=== PATIENT | female | born 1965 | race Caucasian/White ===

== ENCOUNTER 2023-06-07 08:22 | Emergency (ER) | payer OTHER, SELFPAY ==
[2023-06-07 08:35] VITALS: BP 143/101; PULSE 74; RESP 16; TEMP 37.2; O2SAT 97
--- NOTE | 2023-06-07 08:42 | ED.GENADULT ---
HPI - General Adult General Chief complaint: Upper Respiratory Infection Stated complaint: left side face/ear congested Source: patient, RN notes reviewed and old records reviewed Mode of arrival: ambulatory Limitations: no limitations History of Present Illness HPI narrative: 58-year-old female presents to [facility] with complaints of left-sided sinus congestion, sinus pain, left earache, and slight cough this started 5 days ago. Patient taking raym-wqa-tredmdy sinus medications with no relief. Patient denies chest pain, dizziness, weakness, nausea vomiting. MD complaint: sinus congestion and pain Onset (ago): day(s) (5) Related Data Home Medications Medication Instructions Recorded Confirmed calcium-vitamin D3 250 mg-50 unit tablet PO 07/22/20 11/29/22 tablet zinc 50 mg tablet 50 mg PO DAILY 07/22/20 11/29/22 coenzyme Q10 10 mg capsule (Co 10 mg PO ONCE 01/26/21 11/29/22 Q-10) jpchogyv-qccecj-xvtbj extract 5 cap PO 01/26/21 11/29/22 mg-6 mg-150 mg capsule (Fruit and Vegetable Daily) ascorbate calcium (vitamin C) 500 500 mg PO DAILY 08/22/21 11/29/22 mg tablet vitamin E 200 unit capsule 200 unit PO DAILY 08/22/21 11/29/22 Allergies Allergy/AdvReac Type Severity Reaction Status Date / Time No Known Allergies Allergy Verified 11/29/22 07:13 Review of Systems Constitutional: Constitutional: Reports no additional constitutional complaints, Denies body ache(s), Denies chills, Denies fever(s) and Denies malaise Eyes: Eyes: Reports no additional eye complaints ENT: Reports as per HPI, Denies dizziness, Reports otalgia ( left), Reports facial pain, Reports nasal congestion, Reports sinus pain, Reports sinus pressure and Denies sore throat Cardiovascular: Cardiovascular: Reports no additional cardiovascular complaints Respiratory: Respiratory: Reports as per HPI, Reports cough, Denies pain on inspiration, Denies pain with cough and Denies dyspnea Neurologic: Reports system reviewed and no additional complaints, except as documented PMFSH Past Medical History Medical History Fibroids 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 Tendinitis, de Quervain's Family History Family History Other Diabetes mellitus Family history of alcoholism Family history of arthritis Family history of malignant neoplasm Hypertension Social History Social History Smoking packs per day: 0.5 Smoking cigarettes per day: 10.0 Years smoked: 7 Smoking pack-years: 3.50 Smoking status: Never smoker Tobacco type: cigarettes Second hand tobacco smoke exposure: Yes Smoking end date: 07/02/89 Alcohol intake: current Alcohol use details: Social Substance use: current Substance use type: does not use Comments At the time of my signature, I reviewed and agree with the nursing past medical, surgical, social, and family history. There is no relevant family history pertinent to the patient complaint. Exam Const: General: cooperative, healthy appearing, no acute distress and well nourished Nutritional Appearance: well nourished Orientation/consciousness: patient oriented x3 Limitations: no limitations HENMT: Head: normal to inspection and normocephalic Ears: external ears normal, TM normal on the right, mastoids normal, Abnormal EAC present and TM abnormal bulging and erythematous Face/Nose/Sinus: Normal external nose present, No nasal polyps present, sinus tenderness ( left maxillary sinus) and Facial tenderness on exam of face and sinuses Face and sinus: normal facial exam Mouth: Yes Normal oral and palatal mucosa present, Yes oropharynx normal and Yes moist mucous membranes Throat: posterior oropharynx normal, tonsils normal, uvula midline and no uvular edema Eyes: General: appearance normal, both eyes and all
[2023-06-07 09:04] VITALS: BP 162/70
== END 2023-06-07 08:57 | disposition home or self-care (01) ==
PROVIDERS: Emergency Provider Registered Nurse; PCP Nurse Practitioner Family
DX: H66.92 Otitis media, unspecified, left ear (principal); J01.00 Acute maxillary sinusitis, unspecified; Z87.891 Personal history of nicotine dependence
CPT/HCPCS: 99213; G0463

== ENCOUNTER 2023-06-27 16:05 | Emergency (ER) | payer OTHER, SELFPAY ==
[2023-06-27 16:27] VITALS: BP 152/88; PULSE 71; RESP 16; TEMP 37.3; O2SAT 100
--- NOTE | 2023-06-27 16:53 | ED.URI ---
HPI - URI/Sore Throat General Chief Complaint: Upper Respiratory Infection Stated Complaint: Sinus Time Seen by Provider: 06/27/23 16:50 Source: patient and RN notes reviewed Mode of arrival: ambulatory Limitations: no limitations History of Present Illness HPI Narrative: 58-year-old female presents concern for nasal drainage, sinus congestion for the past 4 days. She reported she was treated here for an ear infection and she finished antibiotics and felt completely better and then started feeling ill again 4 days ago. Reports she has taken multi symptom cold medicine without relief. She denies fever, chills, aches, sweats. She reports she is concerned she might be allergic to a real [place] tree that she was around on [place] elicited complaint: rhinorrhea and nasal congestion Related Data Home Medications Medication Instructions Recorded Confirmed calcium-vitamin D3 250 mg-50 unit tablet PO 07/22/20 11/29/22 tablet zinc 50 mg tablet 50 mg PO DAILY 07/22/20 11/29/22 coenzyme Q10 10 mg capsule (Co 10 mg PO ONCE 01/26/21 11/29/22 Q-10) ascorbate calcium (vitamin C) 500 500 mg PO DAILY 08/22/21 11/29/22 mg tablet vitamin E 200 unit capsule 200 unit PO DAILY 08/22/21 11/29/22 Allergies Allergy/AdvReac Type Severity Reaction Status Date / Time No Known Allergies Allergy Verified 06/27/23 16:59 Review of Systems Review of Systems: CONSTITUTIONAL: Denies malaise, chills, sweats, or fever. EYES: Denies visual changes, redness, or discharge. ENT: Reports rhinorrhea, congestion, and sore throat. Denies otalgia CARDIOVASCULAR: Denies chest pain, palpitations, or edema. RESPIRATORY: Reports cough. Denies dyspnea. GASTROINTESTINAL: Denies abdominal pain, nausea, vomiting, diarrhea SKIN: Denies rash or itching. MUSCULOSKELETAL: Denies myalgia. NEUROLOGIC: Denies headache. 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 Tendinitis, de Quervain's Family History Family History Other Diabetes mellitus Family history of alcoholism Family history of arthritis Family history of malignant neoplasm Hypertension Social History Social History Smoking packs per day: 0.5 Smoking cigarettes per day: 10.0 Years smoked: 7 Smoking pack-years: 3.50 Smoking status: Never smoker Tobacco type: cigarettes Second hand tobacco smoke exposure: Yes Smoking end date: 07/02/89 Alcohol intake: current Alcohol use details: Social Substance use: current Substance use type: does not use Comments At time of signature, agree with nursing past medical, surgical, social and family history. There is no relevant family history pertinent to the presenting complaint Exam Narrative: GENERAL: Nontoxic-appearing, well-nourished, and in no acute distress. HEAD: Normocephalic EYES: PERRLA, conjunctivae clear ENT: Nares clear, turbinates edematous and erythematous, clear discharge. Mucous membranes moist. TM pearly hand with dull light reflex bilaterally; no tragal tenderness. Oropharynx not erythematous without lesions. Tonsils not enlarged and without exudate, no drooling, no hoarseness, no trismus, uvula midline. NECK: Supple. No lymphadenopathy CHEST: Clear to auscultation, breath sounds equal. No wheezing, rhonchi, rales, or stridor. No respiratory distress, speaks in full sentences. HEART: Regular rate and rhythm. No murmur heard. SKIN: Warm, dry, no rash. NEURO: Alert and oriented x3. PSYCH: Normal mood and affect Course Course Emergency Course: Patient is aware of diagnosis, understands and agrees to treatment plan. Anticipatory guidance given. Patient agrees to follow-up as directed
== END 2023-06-27 17:39 | disposition home or self-care (01) ==
PROVIDERS: Emergency Provider Nurse Practitioner; PCP Nurse Practitioner Family
DX: J06.9 Acute upper respiratory infection, unspecified (principal); Z20.822 Contact with and (suspected) exposure to COVID-19; Z87.891 Personal history of nicotine dependence
CPT/HCPCS: 87426; 87804; 99213; C9803; G0463

== ENCOUNTER 2023-12-10 05:06 | Emergency (ER) | payer OTHER, SELFPAY ==
[2023-12-10 05:09] VITALS: BP 179/99; PULSE 64; RESP 16; TEMP 36.6; O2SAT 99
--- NOTE | 2023-12-10 05:24 | ED.BACK ---
HPI - Back Pain/Injury General Chief Complaint: Extremity Injury, Lower Stated Complaint: R leg pain Time Seen by Provider: 12/10/23 05:13 History of Present Illness HPI Narrative: Patient with history of sciatica states that for last 2 months she has been having pain to her right lower back that radiates all the way down her leg, almost to the foot, and has been getting worse over the last few days to the point where it hurts to walk. Has had similar symptoms in the past with herniated disc in her neck for which she had surgery done 30 years ago, has had sciatica in the past but has never gone all the way down her leg. No swelling to legs Related Data Home Medications Medication Instructions Recorded Confirmed calcium-vitamin D3 250 mg-50 unit tablet PO 07/22/20 11/29/22 tablet zinc 50 mg tablet 50 mg PO DAILY 07/22/20 11/29/22 coenzyme Q10 10 mg capsule (Co 10 mg PO ONCE 01/26/21 11/29/22 Q-10) ascorbate calcium (vitamin C) 500 500 mg PO DAILY 08/22/21 11/29/22 mg tablet vitamin E 200 unit capsule 200 unit PO DAILY 08/22/21 11/29/22 Allergies Allergy/AdvReac Type Severity Reaction Status Date / Time No Known Allergies Allergy Verified 12/10/23 05:15 Review of Systems Review of Systems: 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 Tendinitis, de Quervain's Family History Family History Other Diabetes mellitus Family history of alcoholism Family history of arthritis Family history of malignant neoplasm Hypertension Social History Social History Smoking packs per day: 0.5 Smoking cigarettes per day: 10.0 Years smoked: 7 Smoking pack-years: 3.50 Smoking status: Never smoker Tobacco type: cigarettes Second hand tobacco smoke exposure: Yes Smoking end date: 07/02/89 Alcohol intake: current Alcohol use details: Social Substance use: current Substance use type: does not use Exam Narrative: EXAMINATION OF ORGAN SYSTEMS/BODY AREAS: Constitutional: Vital signs per nursing GENERAL:[No acute distress, non-toxic appearing.] HEAD: Normal with no signs of head trauma. EYES: EOMI, conjunctiva normal ENT: Hearing grossly intact LUNGS: Nonlabored breathing. HEART: [Regular rate and rhythm] ABD: [Soft], [nontender to palpation] EXT: Normal range of motion; no unilateral leg swelling SKIN: [No rashes or lesions.] NEURO: [Alert and oriented x 3. No gross focal sensory or strength deficits.] PSYCH: Normal affect Course Vital Signs Vital signs: Vital Signs Temperature 97.8 F 12/10/23 05:09 Pulse Rate 64 12/10/23 05:09 Respiratory Rate 16 12/10/23 05:09 Blood Pressure 179/99 H 12/10/23 05:09 Pulse Oximetry 99 12/10/23 05:09 Oxygen Delivery Room Air 12/10/23 05:09 Temperature 97.8 F 12/10/23 05:09 Pulse Rate 64 12/10/23 05:09 Respiratory Rate 16 12/10/23 05:09 Blood Pressure 179/99 H 12/10/23 05:09 Pulse Oximetry 99 12/10/23 05:09 Oxygen Delivery Room Air 12/10/23 05:09 MDM - Back Pain/Injury MDM Narrative Medical decision making narrative: ED COURSE AND MEDICAL DECISION MAKINM with acute on chronic back pain. Normal motor and sensory exam. Patient able to ambulate. No evidence of acute cord compression, osteomyelitis/discitis or cauda equina without saddle anesthesia, urinary retention/incontinence, numbness/tingling in lower extremities, fever, history of IV drug use, cancer or immunosuppression. Doubt AAA or aortic dissection without severe pain/discomfort or any neurovascular deficits. Doubt DVT without swelling of her legs. I have suspect sciatica/lumbar radiculopathy [Ketorolac 15mg IM] given for sympt
--- NOTE | 2023-12-10 05:26 | PC.NURSE ---
0527 - 50mg PO prednisone and 15mg IM Toradol administered at this time. pt resting comfortably in bed. registration at bedside.
== END 2023-12-10 05:38 | disposition home or self-care (01) ==
LOC: ANHED 05:26
PROVIDERS: Emergency Provider Emergency Medicine; PCP Nurse Practitioner Family
DX: M54.41 Lumbago with sciatica, right side (principal); Z87.891 Personal history of nicotine dependence; Z79.899 Other long term (current) drug therapy
CPT/HCPCS: 96372; 99283; J1885; J7512

== ENCOUNTER 2023-12-29 08:11 | Outpatient (CLI) | payer OTHER, SELFPAY ==
--- NOTE | ~2023-12-29 | MR_ITS ---
EXAMINATION: MR lumbar spine wo con DATE: 12/29/2023 08:48 INDICATION: Right-sided low back pain. Lumbar radiculopathy. TECHNIQUE: Magnetic resonance imaging (MRI) of the lumbar spine was performed without intravenous con trast. Sequences included sagittal T2-weighted FSE, sagittal T2-weighted FS FSE, sagittal T1-weighted FSE, and axial T2-weighted FSE. COMPARISON: None FINDINGS: There is 5 degrees levocurvature of lumbar spine. Vertebral body heights are normal. There is a hemangioma in L3 vertebral body. There is mildly decreased disc height at L2-L3, L3-L4, and L4-L 5 and severely decreased disc height at L5-S1. The distal spinal cord signal intensity is normal. The conus medullaris is at L1. The following disc levels are specifically discussed: L1-L2: The disc does not extend beyond the endplate margin. There is severe right and moderate left f acet joint osteoarthritis. There is no neural foraminal stenosis. There is no central canal stenosis. L2-L3: Is bulging and has an annular fissure. There is severe bilateral facet joint osteoarthritis. T here is mild bilateral neural foraminal stenosis. There is mild central canal stenosis. L3-L4: The disc is bulging and has an annular fissure. There is mild bilateral facet joint osteoarthr itis. There is mild bilateral neural foraminal stenosis. There is mild central canal stenosis. L4-L5: The disc is bulging and has an annular fissure. There is severe bilateral facet joint osteoart hritis. There is mild bilateral neural foraminal stenosis. There is mild central canal stenosis. L5-S1: The disc is bulging with superimposed right subarticular zone extrusion with mass effect on ri ght S1 nerve in right lateral recess. There is severe bilateral facet joint osteoarthritis. There is mild right and moderate left neural foraminal stenosis. There is mild central canal stenosis. There i s moderate stenosis of right lateral recess. IMPRESSION: 1. Severe lower lumbar spondylosis. Of note, an extrusion at L5-S1 exerts mass effect on right S1 ner ve root. Reviewed, dictated and finalized at location E. IMPRESSION: 1. Severe lower lumbar spondylosis. Of note, an extrusion at L5-S1 exerts mass effect on right S1 nerve root.
== END 2023-12-29 08:12 ==
PROVIDERS: PCP Nurse Practitioner Family; Visit Provider Nurse Practitioner Family
DX: M43.06 Spondylolysis, lumbar region (principal)
CPT/HCPCS: 72148

== ENCOUNTER 2025-04-30 08:05 | Outpatient (CLI) | payer OTHER, SELFPAY ==
--- NOTE | 2025-04-30 08:13 | ECG_ITS ---
Test Date: 2025-04-30 08:25:46 Measurements Intervals [place] Rate: 60 P: 34 AK: 168 QRS: -16 QRSD: 110 T: 30 QT: 395 QTc: 396 Interpretive Statements SINUS RHYTHM POSSIBLE LEFT ATRIAL ENLARGEMENT INCOMPLETE RIGHT BUNDLE BRANCH BLOCK BORDERLINE R WAVE PROGRESSION, ANTERIOR LEADS BORDERLINE ST ABNORMALITY- HIGH LATERAL LEADS BORDERLINE ECG No previous ECG available for comparison Electronically Signed On 04-30-2025 08:28:06 CDT by Jony Villanueva D.O.
--- OUTSIDE RECORDS SUMMARY | 2025-04-30 08:13 | XMS_ITS | Clinical Summary ---
Author Organization [facility] [address] Address [address] [place] [address] Care Team Providers Care Staff Radiologist Name Role Phone David Steward MD Unavailable [phone] Veda Rodriguez NP Primary Care Provider [phone] Margarito Pinedo MD Unavailable [phone] Allergies No known active allergies Medications levothyroxine (SYNTHROID, LEVOTHROID) 75 mcg tablet Take 1 tablet (75 mcg total) by mouth daily 1 9 Active fluticasone (FLONASE) 50 mcg/actuation nasal sprayIndication s:Dysfunction of left eustachian tube Administer 2 sprays into each nostril daily 18.2 mL 11 9 Active rosuvastatin (CRESTOR) 10 mg tablet 4 Active methocarbamoL (ROBAXIN) 750 mg tablet 4 Active ibuprofen (ADVIL,MOTRIN) 600 mg tablet 4 Active Active Problems Problem Noted Date Diagnosed Date Dysfunction of both eustachian tubes 11/18/2018 Assessment & Plan (11/18/2018 5:22 PM CDT): Continue Nasal saline followed by Flonase 2 sprays into each nostril while looking down over the sink, do not sniff in or blow nose after use. Then Zantac 300 mg at bedtime follow up in 8 weeks Laryngopharyngeal reflux (LPR) 11/18/2018 Assessment & Plan (11/18/2018 5:23 PM CDT): Continue Nasal saline followed by Flonase 2 sprays into each nostril while looking down over the sink, do not sniff in or blow nose after use. Then Zantac 300 mg at bedtime follow up in 8 weeks LPR discussed and Handout provided Dysfunction of left eustachian tube 10/09/2018 Assessment & Plan (10/09/2018 6:11 PM CDT): Avoid ear cleaning techniques Start Flonase or Nasacort 2 sprays into each nostril while looking down over the sink, do not sniff in or blow nose after use. Consider Zantac if no improvement at follow up Ask about teeth grinding Referred otalgia of left ear 10/09/2018 Assessment & Plan (11/18/2018 5:23 PM CDT): Consider imaging if no improvement in 8 weeks Assessment & Plan (10/09/2018 6:11 PM CDT): Avoid ear cleaning techniques Start Flonase or Nasacort 2 sprays into each nostril while looking down over the sink, do not sniff in or blow nose after use. Consider Zantac if no improvement at follow up Ask about teeth grinding Immunizations Immunization Administration Dates Next Due Influenza, Quadrivalent, Antoinette l Culture-based MDCK, Preservative Free, Antibiotic Free, Intramuscular 04/13/2021,04/06/2020 Surgical History Surgery Date Site/Laterality Comments BREAST SURGERY augmentation AUGMENTATION MAMMAPLASTY age 49 Bilateral BREAST BIOPSY 07/02/2019 - 07/01/2020 Left TUBAL LIGATION 1992 Medical History Medical History Date Comments Ear problems Dental disease Sinusitis Thyroid disease Hypertension 2010 Family History Medical History Relation Name Comments Hypertension Father Sargent E Diabetes Father's Sister Adrianna Heart disease Maternal Grandfather Fredy Cancer Maternal Grandmother Jennifer Osteoarthritis Maternal Grandmother Jennifer Heart disease Paternal Grandfather Sargent O Diabetes Paternal Grandmother Vaishali Allergies Sister Relation Name Status Comments Father Taz E Father's Sister Adrianna Maternal Grandfather Fredy Maternal Grandmother Jennifer Paternal Grandfather Taz O Paternal Grandmother Vaishali Sister Social History Tobacco Use Types Packs/Day Years Used Date Smoking Tobacco: Former Cigarettes Q uit: 10/31/1991 Smokeless Tobacco: Never Tobacco Cessation:Counseling Given: Not Answered Alcohol Use Standard Drinks/Week Comments Not Currently 0 (1 standard drink = 0.6 oz pur e alcohol) Comments No Sex and Gender Information Value Date Recorded Sex Assigned at Not on file Legal Sex Female 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 Gender Identity Female 04/09/2024 7:04 PM CDT Sexual Orientation Not on file Obstetrics History Para Term AB IAB SAB Ectopic Multiple Livin g Live Births 2 2 2 Date Outcome GA Total Labor Labor/2nd/3rd Weight Sex Type Anes PTL Lynn A1 A5 Name Clin Term Term Last Filed Vital Signs Vital Sign Reading Time Taken Comments Blood Pressure 122/76 11/18/2018 3:09 PM CDT Pulse 70 11/18/2018 3:09 PM CDT Temperature 36.6 C (97.9 F) 11/18/2018 3:09 PM CDT Respiratory Rate - - Oxygen Saturation 97% 11/18/2018 3:09 PM CDT Inhaled Oxygen Concentration - - Weight 80.7 kg (178 lb) 11/18/2018 3:09 PM CDT Height 168.9 cm (5' 6.5) 11/18/2018 3:09 PM CDT Body Mass Index 28.3 11/18/2018 3:09 PM CDT Plan of Treatment Health Maintenance Due Date Last Done Comments Cervical Cancer Screening 1965 Colon Cancer Screening-Colonoscopy 1965 Depression Screening 1965 Hepatitis C Screening 1965 DTaP/Tdap/Td Vaccine (1 - Tdap) 02/05/1975 Hepatitis B Screening 02/05/1982 Regular Well Visit/Exam 18-64 02/05/1982 Zoster Vaccine (1 of 2) 02/05/2014 Covid-19 Vaccine (3 - season) 2025 02/05/2021, 01/15/2021 Influenza Vaccine (#1) 2025 04/13/2021, 2019 Breast Cancer Screening-Mammogram 12/06/2025 12/06/2024, 09/06/2023, 08/21/2022, Additional history exists Pneumococcal vaccine <65 Aged Out No longer eligible based on patient's age to complete this topic Procedures Procedure Name Priority Date/Time Associated Diagnosis Comments SCREENING MAMMOGRAM BILATERAL W TONE W IMPLANTS Schedule Routine, Read Routine (OP Routine) 12/06/2024 10:41 AM CDT Screening mammogram, encounter for from Last 3 Months or Most Recently Relevant to Health Maintenance Results * Screening Mammogram Bilateral W Tone W Implants (12/06/2024 10:41 AM CDT) Anatomical Region Laterality Modality Breast Bilateral Mammography Impressions 12/07/2024 5:25 PM CDT BI-RADS ATLAS category (overall): 2 - Benign There is no mammographic evidence of malignancy. A 1 year screening mammogram is recommended. The patient has been or will be contacted. We recommend annual screening mammography for women at average risk of breast cancer beginning at age 40, based on guidelines of the [employer] (ACR Practice Parameter for the Performance of Screening and Diagnostic Mammography) and [employer]. For women with and elevated risk of breast cancer, please refer to the ACR Practice Parameter for specific screening recommendations. The patient will be entered into a reminder system with a target due date of 1 year for her next screening exam. Narrative 12/07/2024 5:25 PM CDT Screening Mammogram Bilateral W Tone W Implants: 12/06/24 The study was acquired using full field digital technology and interpreted from soft copy. 2D digital mammographic views, as well as 3D digital tomosynthesis were performed in the CC and MLO projections. CLINICAL: Screening mammogram, encounter for. No relevant medical history has been documented for this patient. No known family history of breast cancer. COMPARISONS: 09/06/2023 Screening Mammogram Bilateral W Tone W Implants 08/21/2022 Diagnostic Mammogram Bilateral W Tone 01/03/2022 Diagnostic Mammogram Left W Tone W Implants 06/07/2021 Diagnostic Mammogram Bilateral W Tone 12/02/2020 Diagnostic Mammogram Left W Tone 06/22/2020 Stereotactic Breast Biopsy Left 06/11/2020 Diagnostic Mammogram 2D Left BREAST TISSUE: The breasts are heterogeneously dense, which may obscure small masses. FINDINGS: Bilateral subglandular silicone breast implants are unchanged in appearance. The presence of implants limits the sensitivity of mammography. There is an unchanged biopsy marking clip in the left breast. There are also a few benign calcifications without suspicious change. There is a biopsy marker clip in the left breast. There is no new suspicious finding in either breast on mammogram. us Self Screening Mammogram IMG MAMMO PROCEDURES Fi nal Result from Last 3 Months or Most Recently Relevant to Health Maintenance Insurance [facility] CHOICE PLUS [facility] CHOICE PLUS [facility] CHOICE PLUS Member Subscriber Plan / Payer (Ef fective 2020-Present) Name:Jeannie Pagan Relation to Subscriber:Spouse Name:JESS PAGAN Date of :1964 (Home) Address: [address] [place] [address] Payer ID:[id number] (NAIC) Type:[facility] HMO/PPO Address: [place] [phone] Care Teams Staff Radiologist Relationship Specialty Start Date End Date Veda Rodriguez NP [address] [facility] [address] [facility] [address] [place] [address] PCP - General Nurse Practitioner 09/06/23 David Steward MD [address] [address] Referring Physician Obstetrics and Gynecology 01/03/22 Margarito Pinedo MD [address] [facility] [address] [place] [address] Referring Physician Family Practice 09/06/23
[2025-04-30 08:34] LABS: Hematocrit 42.4 % (37.0-47.0); Hemoglobin 13.9 g/dL (12.0-15.0); Immature Granulocyte Percent A 0.1 % (0-0.5); Lymphocytes Absolute Auto 2.25 K/mm3 (0.9-3.2); Mean Corpuscular HGB Conc 32.8 g/dl (32-36); Mean Corpuscular Hemoglobin 29.6 pg (26-34); Mean Corpuscular Volume 90.2 fl (80-100); Nucleated Red Blood Cells Absolute Auto 0.000 K/mm3 (0.0-0.012); Nucleated Red Blood Cells Perc 0.0 % (0.0-0.2); Platelet Count Result 350 k/mm3 (150-375); Red Blood Count 4.70 M/mm3 (4.2-5.4); White Blood Count 6.9 K/mm3 (4.5-10.0)
== END 2025-04-30 08:06 | disposition home or self-care (01) ==
LOC: ANHSURGERY 08:09
PROVIDERS: PCP Nurse Practitioner Family; Visit Provider Obstetrics & Gynecology
DX: Z01.818 Encounter for other preprocedural examination (principal); I45.10 Unspecified right bundle-branch block; E78.5 Hyperlipidemia, unspecified; I10 Essential (primary) hypertension; R10.20 Pelvic and perineal pain unspecified side
CPT/HCPCS: 36415; 85025; 86850; 86900; 86901; 93005

== ENCOUNTER 2025-05-08 01:10 | Day surgery (SDC) | payer OTHER, SELFPAY ==
[2025-04-27 14:26] VITALS: BMI 27.1
--- NOTE | 2025-04-27 14:37 | PC.NURSE ---
[facility] has started construction of its new state of the art ER which will open Spring 2026. With this, we anticipate parking may be a challenge for some our surgical patients and families. Parking spaces are limited but are available for all Surgical, obstetrics, and ER patients sharing this lot. If you arrive and find you are having a hard time finding a parking space, please note that we understand the challenges, please drive around the hospital and park near Hospital Entrance 1. When you enter this entrance, you can ask a volunteer to direct or take you back to the surgical waiting area to check in. We appreciate everyone?s understanding of these expected challenges while we build for your future. Report to the Outpatient Waiting Room, entrance under the green pavilion located off [address], at time _0600_ on date _[id number]_. Planned Procedure Time: _0730_.? Time changes happen often and if your time is changed the preop area will call you the afternoon before. - You and your visitor will be asked to self-screen and do not enter if you have any COVID symptoms. Please call surgeon if you need to reschedule. - A mask is optional within the hospital at this time. Patients may have clear liquids (water, carbonated beverages, clear teas, apple juice) until 3 hours prior to surgery with a maximum of 20 ounces. - No food from midnight until time of surgery and no smoking, or chewing tobacco (or any form of nicotine). No chewing gum, candy or mints. Take only the following medications with a SIP of water on the morning of surgery: __Levothyroxine and Flonase____ DO NOT STOP ANY OF YOUR OTHER PRESCRIPTION MEDICATIONS PRIOR TO SURGERY EXCEPT THE FOLLOWING Hold all vitamins and supplements for 3 days per anesthesiologist. Medications to discontinue per physician Date to take last [id number]___ Please no make-up, nail nepali, hairspray, perfume, deodorant, or body powder the day of surgery.? No jewelry (including any body piercings) or valuables the day of surgery, leave them at home.? Please take a shower or bath the night before, or the morning of, surgery with an antibacterial soap.? Wear comfortable, loose fitting clothing. - Jewelry must be removed prior to entering the operating room.? Rings and piercings that are not removed may be cut off. - The hospital will not accept responsibility for valuables.? - Please leave all valuables, including medications, at home the day of surgery. If you are going home after surgery, a licensed mechanic driver must drive you home.? - NO public transportation without another adult if you receive anesthesia. - We recommend that an adult stay with you for 24 hours following discharge. - We also recommend that you do not drive, make important decision, drink alcoholic beverages, or take any drugs that were not prescribed by your health care provider for at least 24 hours after your discharge time. Follow any additional instructions given to you from your surgeon. Telephone instructions given to __Diane__and asked if any additional questions and then verbalized understanding. Patient advised to call surgeon office or pre surgery nurse liaison [phone] if any additional questions.
--- NOTE | 2025-05-06 07:04 | PM.IMHP ---
H&P: HPI History of Present Illness Date/Time: 05/06/25 07:04 Chief Complaint: Enlarged uterus/pelvic pain/uterine fibroids Narrative: 60-year-old female with known uterine fibroids for robotic hysterectomy and bilateral salpingo-oophorectomy. She complains of pain dyspareunia and fullness. Risks and benefits reviewed including not exclusive of , aspiration pneumonia bleeding, transfusion, perforation injury to bowel, bladder, ureters, or other internal organs with need for open laparotomy. She received the ACOG handout entitled hysterectomy as well as the de Christopher handout. She had all questions answered. She asked to proceed. 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 Fibroids Tendinitis, de Quervain's Family History Family History Other Diabetes mellitus Family history of alcoholism Family history of arthritis Family history of malignant neoplasm Hypertension Social History Social History Smoking packs per day: 0.5 Smoking cigarettes per day: 10.0 Years smoked: 7 Smoking pack-years: 3.50 Smoking status: Former smoker Tobacco type: cigarettes Second hand tobacco smoke exposure: Yes Smoking end date: 04/27/90 Alcohol intake: current Alcohol use details: Social Substance use: former Substance use type: marijuana Other substance usage details: Over 40 years ago. Do You Feel Safe in your Home?: Yes Lack of Transportation: No Lack of Food: Never True Current Housing: I Have Housing Concerned About Future Housing: No Difficulty Paying Gas/Electric Bills: No Difficulty Paying for Meds: No Currently Unemployed: No Education: Associate Degree Difficulty w/ Childcare or Family Care: No Living arrangements: with family Occupation/Education: occupation Gender identity (if verbalized by the patient): Female Sexual Orientation (if Verbalized by the Patient): Straight or Heterosexual Spiritual care concerns: No Meds Home Medications and Allergies Home Medications ?Medication ?Instructions ?Recorded ?Confirmed ?Type calcium-vitamin D3 250 mg-50 unit 1 tablet PO DAILY 07/22/20 04/27/25 History tablet zinc 50 mg tablet 50 mg PO DAILY 07/22/20 04/27/25 History ascorbate calcium (vitamin C) 500 500 mg PO DAILY 08/22/21 04/27/25 History mg tablet vitamin E 200 unit capsule 200 unit PO DAILY 08/22/21 04/27/25 History fluticasone propionate 50 2 spray intranasal DAILY #48 mL 04/10/24 04/27/25 Rx mcg/actuation nasal spray,suspension (Flonase Allergy Relief) balance of nature 1 cap PO DAILY 06/17/24 04/27/25 History coenzyme Q10 100 mg capsule (Co 100 mg PO DAILY 01/14/25 04/27/25 History Q-10) lisinopril 10 mg tablet 10 mg PO DAILY #90 tabs 02/17/25 04/27/25 Rx rosuvastatin 10 mg tablet 10 mg PO DAILY #90 tabs 03/09/25 04/27/25 Rx levothyroxine 88 mcg tablet See Rx Instructions .Route 04/06/25 04/27/25 Rx .COMPLEX #90 tabs Allergies Allergy/AdvReac Type Severity Reaction Status Date / Time No Known Allergies Allergy Verified 04/27/25 14:23 Exam Const: General: cooperative, healthy appearing, comfortable and average body habitus Orientation/consciousness: oriented to person, oriented to place and oriented to time Resp: Effort & Inspection: normal respiratory effort Cardio: Rate: regular rate Rhythm: regular rhythm Heart sounds: S1 normal heart sound present and S2 normal heart sound present GI: Inspection: normal to inspection : External Female Exam: normal external appearance Speculum Exam - Vagina: normal appearance of the vagina Speculum Exam - Cervix: normal appearance of the cervix Bimanual exam- vagina & uterus: enlarged and Uterine tenderness Bimanual Exam- Adnexa, other: normal adnexae Assessment and Plan Assessment and plan (1) Enlarged uterus: Code(s): N85.2 - Hypertrophy of uterus Status: Acute (2) Uterine fibroid: Code(s): D25.9 - Leiomyoma of uterus, unspecified Status: Acute (3) Pelvic pain: Code(s): R10.20 - Pelvic and perineal pain unspecified side Status: Acute Plan Proceed with robotic total vaginal hysterectomy and bilateral salpingo-oophorectomy
[2025-05-08] VITALS (9 sets, daily range): BP systolic 114–137; BP diastolic 74–99; PULSE 52–80; RESP 12–16; TEMP 36.1–36.6; O2SAT 95–100; BMI 27.5
[2025-05-08] MEDS: LACTATED RINGERS 1,000 ML 30 ML IV CONT ×2 (06:30→08:54)
[2025-05-08] MEDS: ACETAMINOPHEN 500 MG TABLET 1000 MG PO ×3 (06:35→18:51)
[2025-05-08] MEDS: KETOROLAC 15 MG/ML VIAL (*BKC) IV PUSH (06:35)
--- NOTE | 2025-05-08 06:50 | WPDHPUPDATE1 ---
History and Physical Update Update Date/Time: 05/08/25 06:50 History and Physical has been reviewed, including an updated exam of the patient. There are NO changes in the patient's condition. Risks, benefits, and alternatives have been discussed and questions answered. Patient agrees to proceed with procedure.
--- NOTE | 2025-05-08 07:08 | WPDANESEPPF ---
Anes - Initial Pre Proc Eval Procedure: Operation Date: 05/08/25 07:30 Proposed Procedures p Robotic Assisted Total Vaginal Hysterectomy with Bilateral Salpingo-oophorectomy - David Puckett MD Date/Time: 05/08/25 07:08 Surgeon: David Puckett MD Pre Op Diagnosis: Pelvic Pain, Dyspareunia, enlarg uterus Patient Data Age: 60 Gender: F Height: 1.66 m Weight: 76.1 kg Last Vital Signs Temp 97.6 F 05/08/25 06:05 Pulse 58 L 05/08/25 06:05 Resp 16 05/08/25 06:05 BP 137/99 H 05/08/25 06:05 Pulse Ox 97 05/08/25 06:05 O2 Del Method Room Air 05/08/25 06:05 Allergies Allergy/AdvReac Type Severity Reaction Status Date / Time No Known Allergies Allergy Verified 05/08/25 06:10 Home Medications ?Medication ?Instructions ?Recorded ?Confirmed ?Type calcium-vitamin D3 250 mg-50 unit 1 tablet PO DAILY 07/22/20 05/08/25 History tablet zinc 50 mg tablet 50 mg PO DAILY 07/22/20 05/08/25 History ascorbate calcium (vitamin C) 500 500 mg PO DAILY 08/22/21 05/08/25 History mg tablet vitamin E 200 unit capsule 200 unit PO DAILY 08/22/21 05/08/25 History fluticasone propionate 50 2 spray intranasal DAILY #48 mL 04/10/24 05/08/25 Rx mcg/actuation nasal spray,suspension (Flonase Allergy Relief) balance of nature 1 cap PO DAILY 06/17/24 05/08/25 History coenzyme Q10 100 mg capsule (Co 100 mg PO DAILY 01/14/25 05/08/25 History Q-10) lisinopril 10 mg tablet 10 mg PO DAILY #90 tabs 02/17/25 05/08/25 Rx rosuvastatin 10 mg tablet 10 mg PO DAILY #90 tabs 03/09/25 05/08/25 Rx levothyroxine 88 mcg tablet See Rx Instructions .Route 04/06/25 05/08/25 Rx .COMPLEX #90 tabs hydrocodone 5 mg-acetaminophen 325 1 tablet PO Q4H PRN pain #20 tabs 05/08/25 Rx mg tablet Patient hx anesthesia problems: none Family hx anesthesia problems: none Results Review: All pre-operative results and documents have been reviewed as part of the pre-operative evaluation. 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 Fibroids Tendinitis, de Quervain's Family History Family History Other Diabetes mellitus Family history of alcoholism Family history of arthritis Family history of malignant neoplasm Hypertension Social History Social History Smoking packs per day: 0.5 Smoking cigarettes per day: 10.0 Years smoked: 7 Smoking pack-years: 3.50 Smoking status: Former smoker Tobacco type: cigarettes Second hand tobacco smoke exposure: Yes Smoking end date: 04/27/90 Alcohol intake: current Alcohol use details: Social Substance use: former Substance use type: marijuana Other substance usage details: Over 40 years ago. Do You Feel Safe in your Home?: Yes Lack of Transportation: No Lack of Food: Never True Current Housing: I Have Housing Concerned About Future Housing: No Difficulty Paying Gas/Electric Bills: No Difficulty Paying for Meds: No Currently Unemployed: No Education: Associate Degree Difficulty w/ Childcare or Family Care: No Living arrangements: with family Occupation/Education: occupation Gender identity (if verbalized by the patient): Female Sexual Orientation (if Verbalized by the Patient): Straight or Heterosexual Spiritual care concerns: No Anes - Eval Final PreProcedure Day of Procedure 05/08/25 07:08 Patient weight: overweight Lungs: normal air movement Airway: Mallampati scale class II Neurological: alert and oriented Last oral intake: >/= 8 hours ASA classification: II Emergent: no Anesthetic plan: proceed Anesthesia type and monitoring: general ETT and standard monitoring Results Review: All pre-operative results and documents have been reviewed as part of the pre-operative evaluation. HTN, hyperlipidemia, hypothyroidism, EKG reviewed. Pt w good exercise tolerance, no cp or sob w 1-2 fos. Informed Consent: The patient's anesthetic plan and its attendant risks and benefits were discussed with the patient/family/POA. Questions were solicited and answers provided to the satisfaction of the patient/family/POA.
[2025-05-08] MEDS: ceFAZolin 2 GM in SODIUM CHLORIDE 0.9% IV 50 ML 100 ML IVPB (07:26)
--- NOTE | 2025-05-08 08:24 | S_PTH ---
PATIENT: Jeannie Luevano LOC: [facility] U#:[id number] AGE/SX: 60/F ROOM: RE05/08/[address]: David Puckett MD : 1965 BED: DIS: 05/09/2025 SPEC #: [id number] RECD: 05/08/25 10:03 STATUS: NEIL REQ #: [id number] KINA: 05/08/25 08:[address]: David Steward DEPT: [facility] Surgical RECD BY: Mirian Rachel ENTERED: 05/08/25 10:03 SP TYPE: Surgical OTHR DR: Veda Rodriguez APRN Tissues: A - Uterus Procedures: Hematoxylin and Eosin Stain Gross and Microscopic Level 5
--- NOTE | 2025-05-08 08:32 | W.PM.PROC2 ---
Procedure Note - Detailed Date of Procedure 05/08/25 Pre-op Diagnosis Pelvic Pain, Dyspareunia, enlarg uterus Post-op Diagnosis Same Procedure Performed Robotic total vaginal hysterectomy bilateral salpingo-oophorectomy Surgeon David Puckett MD Anesthesia General Indications 60-year-old female with symptomatic uterine fibroids Findings Fibroid uterus. Tubes status post tubal ligation Description of Procedure Patient was prepped and draped in the normal sterile fashion placed in the dorsal lithotomy position. Under excellent general endotracheal anesthesia weighted speculum placed in posterior fornix vagina. Anterior lip of cervix grasped with single-tooth tenaculum. Uterus sounded to 10cm. Serial dilatation with fragmented dilators performed followed by passage of the the 8. DIONNE and the 3. Cold cup. Next the 16 Danish catheter was placed in bladder drained clear urine. The weighted speculum and the single-tooth removed. The gloves were changed. A supraumbilical incision made the Veress needle passed in the abdomen. Abdomen filled with CO2 gas [id number]. The 8mm trocar advanced in the abdomen. Downside visualized no injury seen. Gas reattached patient placed in Trendelenburg and right left lateral quadrant incisions made. 8mm trocars were placed in each under direct visualization assuring no injury. An 8mm trocar advanced in the right upper quadrant for an phlebotomy lab assistant port. The robot was docked. Attention was turned to the nurses' association counselor. The left round ligament was grasped, burned, cut. Anterior bladder flap was formed by sharply dissecting the peritoneum away from the cervix uterus caudally to the opposite round ligament which was clamped, burned, cut. The infundibulopelvic structure on the left was skeletonized to remove the remaining portion of tube and ovary and this was serially clamped, burned, cut and brought to level of previously cut round ligament. In similar fashion the infundibulopelvic structure on the right was skeletonized to remove the right ovary anterior which was clamped, burned, cut. This was brought to level of previously cut round ligament. Next the cardinal and broad ligaments on the left were skeletonized clamping burning cutting and hugging the cervix and uterus until the tortuous the blood vessels were seen on the left these were individually clamped, burned, cut. In similar fashion on the right the cardinal broad ligaments were serially skeletonized clamping burning cutting and hugging the cervix uterus until the uterine vessels could be seen on the right. These were individually clamped, burned, cut. Blanching the uterus was noted a colpotomy incision was made. Cervix uterus is uterus ovaries and tubes removed through the vagina. The vagina then closed with continuous running 0V lock from lateral edge to lateral edge back to the midline. Irrigation undertaken: Clear and blood loss estimated left 25cc. Hemostasis was assured the robot was undocked. The gas removed from the abdomen. Incisions closed with 4-0 Monocryl and glue. The patient went to recovery in satisfactory condition. All sponge, needle, instrument counts were correct. There were no immediate complications Estimated Blood Loss 25 Drains No Packing No Pathology Yes Complications No immediate complications Condition Stable Disposition PACU
--- NOTE | 2025-05-08 08:36 | P.DS_ITS ---
DS: Admitting Diagnosis Discharge Date Admitting Diagnosis Pelvic pain/enlarged uterus/uterine fibroids DS: Discharge Diagnosis Discharge Diagnosis (1) Enlarged uterus: Code(s): N85.2 - Hypertrophy of uterus Status: Acute (2) Uterine fibroid: Code(s): D25.9 - Leiomyoma of uterus, unspecified Status: Acute (3) Pelvic pain: Code(s): R10.20 - Pelvic and perineal pain unspecified side Status: Acute DS: Summary Hospital Course Reason for hospitalization: Patient was admitted for robotic total vaginal hysterectomy and bilateral salpingo-oophorectomy on 04/07 2025. Hospital Course: Patient's hospital course unremarkable. She remained afebrile. She was up, voiding without difficulty, eating regular diet, ambulating, and generally without complaints. Time Spent with Patient Time attestation: Total time spent providing and/or coordinating discharge services: Exam Const: General: cooperative, healthy appearing and comfortable Nutritional Appearance: average body habitus Orientation/consciousness: oriented to person, oriented to place and oriented to time Resp: Effort & Inspection: normal respiratory effort Cardio: Rate: regular rate Rhythm: regular rhythm Heart sounds: S1 normal heart sound present and S2 normal heart sound present GI: Inspection: normal to inspection and incision (Wounds are clean dry and intact) DS: Data Data Completed and Pending Pending studies at discharge: Pending at discharge 05/08/25 08:24 Surgical [PTH] Routine Discharge Plan Discharge Patient Disposition: Home Patient Language: Croatian Stand Alone Forms: General Discharge Instructions Follow-up/Referrals: David Steward MD [Physician, [employer]] Discharge Medications: New hydrocodone-acetaminophen 5-325 mg tablet 1 tablet PO Q4H PRN (Reason: pain) Qty: 20 0RF No Action zinc 50 mg tablet 50 mg PO DAILY calcium-vitamin D3 250-50 mg-unit tablet 1 tablet PO DAILY ascorbate calcium (vitamin C) 500 mg tablet 500 mg PO DAILY vitamin E 200 unit capsule 200 unit PO DAILY coenzyme Q10 [Co Q-10] 100 mg capsule 100 mg PO DAILY balance of nature 1 cap PO DAILY Rx Instructions: 1 cap orally; Daily fluticasone propionate [Flonase Allergy Relief] 50 mcg/actuation spray,suspension 2 spray intranasal DAILY Qty: 48 1RF Rx Instructions: administer into each nostril lisinopril 10 mg tablet 10 mg PO DAILY Qty: 90 1RF rosuvastatin 10 mg tablet 10 mg PO DAILY Qty: 90 1RF levothyroxine 88 mcg tablet See Rx Instructions .ROUTE .COMPLEX Qty: 90 1RF Dose Instruction: TAKE 1 TABLET DAILY Rx Instructions: TAKE 1 TABLET DAILY
[2025-05-08] MEDS: fentaNYL CITRATE INJ (*CRX) 100 MCG/2 ML VIAL 25 MCG IV PUSH ×2 (09:12→09:15)
--- NOTE | 2025-05-08 09:23 | SUR.PHASEI ---
RN paged Dr. Sharri Puckett in regards to transfer orders
--- NOTE | 2025-05-08 10:18 | OBPPTRN ---
Patient transferred to post room #289 via stretcher from PACU. Support person present. Oriented to unit, room, information board and admission packet. Patient verbalizes understanding.
[2025-05-08] MEDS: SIMETHICONE 80 MG TAB.CHEW PO ×2 (10:55→18:50)
[2025-05-08] MEDS: oxyCODONE HCL (*CRX) 5 MG TAB IR 10 MG PO (10:55)
[2025-05-08] MEDS: KETOROLAC 30 MG/ML VIAL (*BKC) IV PUSH ×2 (12:30→18:50)
[2025-05-08] MEDS: DOCUSATE SODIUM 100 MG CAPSULE PO (18:50)
[2025-05-09] MEDS: ACETAMINOPHEN 500 MG TABLET 1000 MG PO ×2 (00:40→06:47)
[2025-05-09 00:43] VITALS: BP 120/78; PULSE 74; RESP 16; TEMP 36.7; O2SAT 97
[2025-05-09] MEDS: KETOROLAC 30 MG/ML VIAL (*BKC) IV PUSH (00:43)
[2025-05-09 04:00] VITALS: BP 131/79; PULSE 78; RESP 16; TEMP 36.7; O2SAT 98
[2025-05-09] MEDS: IBUPROFEN 600 MG TABLET PO (06:47)
[2025-05-09 06:50] VITALS: BP 127/85; PULSE 60; RESP 16; TEMP 37.1; O2SAT 97
--- NOTE | 2025-05-09 07:56 | PM.GYNPNOP ---
[facility]AN[facility] HAND - A/P Assessment and plan (1) Enlarged uterus: Code(s): N85.2 - Hypertrophy of uterus Status: Acute (2) Uterine fibroid: Code(s): D25.9 - Leiomyoma of uterus, unspecified Status: Acute (3) Pelvic pain: Code(s): R10.20 - Pelvic and perineal pain unspecified side Status: Acute Plan home Postoperative Procedures: Procedures Operation Date: 05/08/25 07:30 Actual Procedure Side Surgeon p Robotic Assisted Total Vaginal Hysterectomy with Bilateral Salpingo-oophorectomy Bilateral David Puckett MD Time Spent With Patient Time: Total time spent is greater than 50% in coordination of care (as documented) at patient's floor/unit and/or counseling patient: Time with patient: 15 - 25 minutes [facility]- PN:Subj Post-Op Subjective Date/time seen: 05/09/25 07:56 Subjective: patient reports feeling better, patient has no complaints, patient desires discharge, pain is well controlled and patient is tolerating oral intake Review of Systems Review of Systems: All systems reviewed & are unremarkable except as noted in HPI and below Exam Const: General: cooperative, healthy appearing and comfortable Nutritional Appearance: average body habitus Orientation/consciousness: oriented to person, oriented to place and oriented to time Resp: Effort & Inspection: normal respiratory effort Cardio: Rate: regular rate Rhythm: regular rhythm Heart sounds: S1 normal heart sound present and S2 normal heart sound present GI: Inspection: normal to inspection and incision (Wounds are clean dry and intact) [facility] - PN: Obj Data Vital Signs Vital Signs: Vital Signs - 24 hr 05/08/25 08:54 05/08/25 09:10 05/08/25 09:25 Temperature 97.0 F L Pulse Rate 59 L 54 L 54 L Respiratory Rate 16 16 12 Blood Pressure 133/75 136/81 116/79 Pulse Oximetry 100 100 100 Oxygen Delivery Simple Face Mask Simple Face Mask Simple Face Mask Oxygen Flow Rate 8 8 8 05/08/25 09:40 05/08/25 09:55 05/08/25 10:30 Temperature 97.8 F Pulse Rate 57 L 54 L 52 L Respiratory Rate 12 12 16 Blood Pressure 115/76 117/83 120/79 Pulse Oximetry 97 96 95 Oxygen Delivery Room Air Room Air Oxygen Flow Rate 05/08/25 12:30 05/08/25 16:30 05/08/25 16:30 Temperature 97.8 F Pulse Rate 65 65 Respiratory Rate 16 16 Blood Pressure 116/79 Pulse Oximetry 99 99 Oxygen Delivery Room Air Room Air Oxygen Flow Rate 05/08/25 18:50 05/09/25 00:43 05/09/25 04:00 Temperature 97.9 F 98.1 F 98.0 F Pulse Rate 80 74 78 Respiratory Rate 16 16 16 Blood Pressure 114/74 120/78 131/79 Pulse Oximetry 97 97 98 Oxygen Delivery Oxygen Flow Rate 05/09/25 06:50 Temperature 98.7 F Pulse Rate 60 Respiratory Rate 16 Blood Pressure 127/85 Pulse Oximetry 97 Oxygen Delivery Oxygen Flow Rate Intake/Output Intake/Output: Intake & Output 05/06/25 05/07/25 05/08/25 05/09/25 23:59 23:59 23:59 23:59 Intake Total 450 Output Total 560 1400 Balance -110 -1400 Meds/Results Medications: Active Medications Generic Name Dose Route Start Last Admin Trade Name Freq PRN Reason Stop Dose Admin Acetaminophen 1,000 mg 05/08/25 12:00 05/09/25 06:47 Acetaminophen 500 Mg Tablet PO 1,000 mg Q6HR ROSALEE Administration Ascorbic Acid 500 mg 05/09/25 09:00 Ascorbic Acid 500 Mg Tablet PO DAILY REPLACED BY [facility] Calcium Carbonate 1 tablet 05/09/25 09:00 Calcium/Vitamin D 250 Mg/3.125 Mcg (125 I.U.) Tablet PO 06/08/25 08:59 DAILY REPLACED BY [facility] Docusate Sodium 100 mg 05/08/25 09:00 05/08/25 18:50 Docusate Sodium 100 Mg Capsule PO 100 mg BID REPLACED BY [facility] Administration Fluticasone Propionate 2 spray 05/09/25 09:00 Fluticasone Propionate 0.05% Na Spr 16 Gm Btl (*Bkc) NASAL DAILY REPLACED BY [facility] Ibuprofen 600 mg 05/09/25 06:00 05/09/25 06:47 Ibuprofen 600 Mg Tablet PO 600 mg Q6HR REPLACED BY [facility] Administration Levothyroxine Sodium 88 mcg 05/09/25 06:30 05/09/25 07:05 Levothyroxine Sodium 88 Mcg Tablet PO Not Given DAILY@0630 REPLACED BY [facility] Lisinopril 10 mg 05/09/25 09:00 Lisinopril 10 Mg Tablet PO DAILY REPLACED BY [facility] Naloxone HCl 0.1 mg 05/08/25 08:30 Naloxone Hcl 0.4 Mg/Ml Vial IV PUSH Q2M PRN Respiratory rate less than 10 Non-Formulary Medication 1 each 05/08/25 10:42 Nonformulary Nutritional Supplement XX 05/09/25 10:41 PRN PRN PROTOCOL Ondansetron HCl 4 mg 05/08/25 08:30 Ondansetron Inj 4 Mg/2 Ml Vial IV PUSH Q6H PRN Nausea And Vomiting Oxycodone HCl 5 mg 05/08/25 08:30 Oxycodone Hcl (*Crx) 5 Mg Tab Ir PO Q4H PRN Pain Rated 4-6 Oxycodone HCl 10 mg 05/08/25 08:30 05/08/25 10:55 Oxycodone Hcl (*Crx) 5 Mg Tab Ir PO 10 mg Q6H PRN Administration Pain Rated 7-10 Rosuvastatin Calcium 10 mg 05/09/25 09:00 Rosuvastatin 10 Mg Tablet PO DAILY ROSALEE Simethicone 80 mg 05/08/25 12:00 05/08/25 18:50 Simethicone 80 Mg Tab.Chew PO 80 mg TIDWM ROSALEE Administration Vitamin E 200 unit 05/09/25 09:00 Vitamin E 100 Unit Capsule PO 06/08/25 08:59 DAILY ROSALEE Zinc Sulfate 50 mg 05/09/25 09:00 Zinc Sulfate 220 Mg Capsule PO DAILY REPLACED BY [facility]
[2025-05-09] MEDS: SIMETHICONE 80 MG TAB.CHEW PO (09:07)
[2025-05-09] MEDS: DOCUSATE SODIUM 100 MG CAPSULE PO (09:07)
== END 2025-05-09 09:40 | disposition home or self-care (01) ==
LOC: ANHSURGERY 06:50 → ANHOB2 10:23
PROVIDERS: PCP Nurse Practitioner Family; Visit Provider Obstetrics & Gynecology
PROC: (CPT 58552; principal; 2025-05-08 07:30)
DX: R10.20 Pelvic and perineal pain unspecified side (principal); N94.10 Unspecified dyspareunia; N72 Inflammatory disease of cervix uteri; N88.8 Other specified noninflammatory disorders of cervix uteri; D25.1 Intramural leiomyoma of uterus; Z87.891 Personal history of nicotine dependence
CPT/HCPCS: 58552; S2900; 88307; 99199; J0690; A9270; J1100; J1885; J2003; J2250; J2270; J2405; J2704; J3010; J7030; J7120